=== PATIENT | female | born 1980 ===

== ENCOUNTER 2017-08-06 14:34 | Emergency (ER) | payer SELFPAY ==
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
[2017-08-06 15:01] VITALS: BP 99/77; PULSE 130; RESP 18; TEMP 97.9; O2SAT 98
== END 2017-08-06 15:30 | disposition left against medical advice (07) ==
DX: S90.31XA Contusion of right foot, initial encounter (principal); S90.32XA Contusion of left foot, initial encounter; Y08.89XA Assault by other specified means, initial encounter; Y99.8 Other external cause status; Y93.89 Activity, other specified